=== PATIENT | male | born 1990 | race Caucasian/White ===

== ENCOUNTER 2021-10-26 00:13 | Emergency (ER) | payer OTHER, SELFPAY ==
--- NOTE | ~2021-10-26 | XR_ITS ---
EXAMINATION: XR CHEST CLINICAL INFORMATION: Chest COMPARISON: None TECHNIQUE: Frontal view of the chest was obtained. FINDINGS: No significant abnormality is noted involving the heart, lungs, mediastinum, bony thorax or soft tissues. XR/XR chest 1V IMPRESSION: Unremarkable examination.
--- NOTE | 2021-10-26 00:16 | ECG_ITS ---
Test Reason : CHEST PAIN Blood Pressure : / mmHG Vent. Rate : 070 BPM Atrial Rate : 070 BPM P-R Int : 150 ms QRS Dur : 102 ms QT Int : 400 ms P-R-T Axes : 058 042 035 degrees QTc Int : 432 ms Sinus rhythm with Premature supraventricular complexes Otherwise normal ECG No previous ECGs available Referred By: Luisa Fuentes Electronically Signed By:ROSEMARY RANDOLPH
[2021-10-26 00:21] VITALS: BMI 25.8
--- NOTE | 2021-10-26 00:34 | ED.GENADULT ---
HPI - General Adult General Chief complaint: General Medical Stated complaint: chest discomfort Time Seen by Provider: 10/26/21 00:16 Source: patient Mode of arrival: ambulatory History of Present Illness HPI narrative: 31-year-old male who is brought in by EMS after he was found by the police department sleeping underneath the vehicle. Patient states that he has been walking all day. He denies any alcohol use but endorses he did use some heroin and denies any suicidal or depression. Patient denies wanting detox when does not wish to speak to anyone. Otherwise, he states that he is hungry but denies any fever, chills, shortness of breath/chest pain/ palpitations. Related Data Allergies Allergy/AdvReac Type Severity Reaction Status Date / Time Unable to Assess Allergy Verified 10/26/21 00:16 Review of Systems Review of Systems: Pertinent positives and negatives as stated in HPI 10 point review of systems is otherwise negative. PMFSH Past Medical History Source: nursing notes reviewed Social History Social History Alcohol intake: current Patient Tobacco Use Status: Current everyday Tobacco user Use of substances other than those prescribed or required for medical reasons: Yes Physical Exam ED Vital Signs: Vital Signs - 24 hr 10/26/21 01:10 Respiratory Rate 17 BMI result Body Mass Index 25.8 VITAL SIGNS: Reviewed. GENERAL: Well developed, well nourished, in no acute distress. HEAD: Normocephalic/atraumatic EYES: PERRLA, EOMI EARS: Ext canals without abnormality OROPHARYNX: no oral lesions noted, posterior pharynx clear LUNGS: Normal breath sounds. No adventitious sounds or accessory muscle use. CARDIOVASCULAR: Regular rate and rhythm without noted murmurs ABDOMEN: Soft, non-tender, non-distended with bowel sounds. MUSCULOSKELETAL: No tenderness, deformities, or effusions noted on gross inspection. EXTREMITIES: No cyanosis, clubbing or edema. SKIN: Inspection of the skin reveals no rashes NEUROLOGIC: Alert and oriented x 4. Strength and sensation to light touch were grossly intact x 4. Course Course Course Narrative: 31-year-old male with history and clinical presentation consistent with opioid use. Patient does not demonstrate any signs or symptoms of suicidal ideation or depression, he is currently refusing ALIDA eval and is requesting to be discharged home. He was discharged with home Narcan. Patient is tolerating oral intake without difficulty and is noted to ambulate with a steady gait. Medical Decision Making ECG Data Attestation: I personally reviewed and interpreted this ECG as follows: Prior ECG tracings: not available for review Interpretation: sinus rhythm, HR - 70, no STEMI, OH/ QRS /QTC are within normal limits. Discharge Plan Discharge Clinical Impression: Substance use disorder Patient Disposition: Home, Self-Care Instructions: Polysubstance Abuse (ED) Additional Instructions: follow-up with your primary care provider. Return to the ER for worsening symptoms.
[2021-10-26 01:10] VITALS: RESP 17
--- NOTE | 2021-10-26 01:29 | PC.NURSE ---
Pt refuses labs, refuses vital signs. He states he feels as if someone in the ED is talking about him and is requesting to leave. MD Jim aware, spoke with pt regarding this.
--- NOTE | 2021-10-26 01:39 | PC.NURSE ---
Pt left prior to obtaining DC papers/take home Narcan - despite being encouraged to wait one additional minute for me to pull them from [facility]. Pt informed other staff members that he has narcan and can get more from [facility]. Pt ambulated out of the ED independently and with steady gait.
== END 2021-10-26 01:42 | disposition home or self-care (01) ==
LOC: HO.ED 01:37
PROVIDERS: Emergency Provider Student in an Organized Health Care Education/Training Program
DX: F19.10 Other psychoactive substance abuse, uncomplicated (principal); F17.200 Nicotine dependence, unspecified, uncomplicated
CPT/HCPCS: 71045; 93005; 99283; 99284

== ENCOUNTER 2021-10-31 02:36 | Emergency (ER) | payer OTHER, SELFPAY ==
--- NOTE | 2021-10-31 02:47 | ED_ITS ---
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 complaint: substance abuse Onset (ago): day(s) Duration: intermittent History of same: Yes Relieving factors: none Exacerbating factors: drug use Context: recent drug abuse Associated psychiatric symptoms: none Associated symptoms: denies other symptoms Treatments prior to arrival: none Related Data Allergies Allergy/AdvReac Type Severity Reaction Status Date / Time Unable to Assess Allergy Verified 10/26/21 00:16 Review of Systems Review of Systems: Constitutional : No Fever, No Chills Cardiovascular : No Chest Pain, No SOB Respiratory : No Cough, No Sputum, No Dyspnea Gastrointestinal : No Nausea, No Vomiting, No Diarrhea Genitourinary : No Dysuria, No Urinary Frequency, No Hematuria Musculoskeletal : No Myalgias Skin : No Skin Lesions, No rash Neuro : No Weakness, No Numbness, No Paresthesias, No Dizziness, No Headache Psych : no Anxiety, no Depression, nonSI/HI All other systems reviewed and are negative [facility] Past Medical History Attestation statement: The following information was validated with the patient. Medical History Polysubstance abuse Social History Social History (Updated 10/31/21 @ 02:54 by Dana Ryder DO) Alcohol intake: current Patient Tobacco Use Status: Current everyday Tobacco user Substance Use Type: Crack/Cocaine and Heroin Physical Exam Vital Signs: Appearance: Alert. Oriented X3. No acute distress. Initially agitated he was brought here. Why am I here, I don't need to be here! Calmed down and given food. Eyes: Pupils equal, round and reactive to light. ENT: Pharynx normal. Neck: Normal inspection. Neck supple. CVS: tachycardic heart rate and rhythm. Pulses normal. Respiratory: No respiratory distress. Breath sounds normal. Abdomen: Soft and nontender. Skin: Skin warm and dry. Normal skin color. Normal skin turgor. Extremities: No lower extremity edema. No calf ttp Neuro: Oriented X 3. No motor deficit. No sensory deficit. 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 He did not receive narcan, he has no SI/HI. He is calm and cooperative. He does not want a SUDE evaluation. Discharge Plan Discharge Clinical Impression: Polysubstance abuse Patient Disposition: Home, Self-Care Instructions: Polysubstance Abuse (ED) Additional Instructions: return to ED for any worsening symptoms or concerns carry narcan with you at at all times
[2021-10-31 02:52] VITALS: BP 139/86; BP 160/110; PULSE 101; PULSE 110; RESP 16; O2SAT 96; O2SAT 97; BMI 27.0
--- NOTE | 2021-10-31 02:59 | PC.NURSE ---
Took over care of pt. from EMS. Pt. says he doesn't need to be here. Denies SI/HI/AH/VH. No complaints of pain. Admits to using illicit drugs earlier in the evening. Pt. is alert and oriented X4. Steady ambulation is observed.
[2021-10-31] MEDS: Naloxone HCl Nasal TAKE HOME 4 MG SPRAY NOSTRILALT (03:02)
--- NOTE | 2021-10-31 03:03 | PC.NURSE ---
NARCAN scanned in per MAR, given to patient.
== END 2021-10-31 03:06 | disposition home or self-care (01) ==
LOC: HO.ED 03:02
PROVIDERS: Emergency Provider Emergency Medicine
DX: F11.29 Opioid dependence with unspecified opioid-induced disorder (principal); F14.10 Cocaine abuse, uncomplicated; F17.200 Nicotine dependence, unspecified, uncomplicated; Z71.6 Tobacco abuse counseling; Z79.899 Other long term (current) drug therapy
CPT/HCPCS: 99282

== ENCOUNTER 2021-10-31 19:21 | Emergency (ER) | payer OTHER, SELFPAY ==
[2021-10-31 19:31] VITALS: BP 133/88; BP 150/98; PULSE 107; PULSE 121; RESP 18; O2SAT 95; BMI 29.8
--- NOTE | 2021-10-31 19:37 | ED.GENADULT ---
HPI - General Adult General Chief complaint: Overdose Stated complaint: ?OD Time Seen by Provider: 10/31/21 19:36 Source: patient and EMS Mode of arrival: EMS Limitations: no limitations History of Present Illness HPI narrative: Patient is a 31 year old male presenting to the emergency department today after a possible overdose. Patient states that he fell asleep in an unusual place and he was woken up to EMS using narcan on him. Patient states that he attempted to refuse narcan but they insisted and did it anyway. Patient states that he would like to leave, now. Patient states that he does not want to talk to anyone and does not want narcan for home. Patient denies any dizziness, lightheadedness, abdominal pain, nausea, vomiting, fever, chills, blurry vision, double vision, loss of vision, chest pain, difficulty breathing, shortness of breath, back pain, night sweats, pain with urination, increased urinary frequency, increased urinary urgency, blood in his urine or stool, syncope or a near syncopal episode, recent trauma or falls, bowel incontinence, bladder incontinence, bowel retention, bladder retention, or any other complaints at this time. Onset (ago): minute(s) Severity: mild Relieving factors: none Exacerbating factors: none Associated symptoms: denies other symptoms Treatments prior to arrival: none Related Data Allergies Allergy/AdvReac Type Severity Reaction Status Date / Time Unable to Assess Allergy Verified 10/26/21 00:16 Review of Systems Constitutional: Constitutional: Reports no additional constitutional complaints, Denies chills, Denies fever(s) and Denies night sweats Eyes: Eyes: Reports no additional eye complaints, Denies blurry vision, Denies change in vision, Denies diplopia, Denies eye discharge, Denies loss of vision and Denies eye pain ENT: Denies dizziness Cardiovascular: Cardiovascular: Reports no additional cardiovascular complaints, Denies chest pain, Denies lightheadedness, Denies Loss of Consciousness and Denies dyspnea Respiratory: Respiratory: Reports no additional respiratory complaints and Denies dyspnea Gastrointestinal: Gastrointestinal: Reports no additional gastrointestinal complaints, Denies abdominal pain, Denies melena, Denies hematochezia, Denies change in bowel habits and Denies change in stool character Genitourinary: Genitourinary: Reports no additional male genitourinary complaints, Denies hematuria, Denies oliguria, Denies difficulty urinating, Denies dysuria, Denies urinary frequency, Denies urinary hesitancy, Denies urinary incontinence and Denies urinary urgency Musculoskeletal: Musculoskeletal: Reports no additional musculoskeletal complaints, Denies numbness and Denies tingling Neurologic: Denies dizziness, Denies loss of vision, Denies numbness and Denies tingling Psychiatric: Psychiatric: Reports no additional psychiatric complaints Endocrine: Endocrine: Reports no additional endocrine complaints Hematologic/Lymphatic: Hematologic/Lymphatic: Reports no additional hematologic/lymphatic complaints Allergic/Immunologic: Allergic/Immunologic: Reports no additional allergic/immunologic complaints [facility] Past Medical History Attestation statement: The following information was validated with the patient. Source: old records reviewed Medical History Polysubstance abuse Social History Social History Alcohol intake: current Patient Tobacco Use Status: Current everyday Tobacco user Substance Use Type: Crack/Cocaine and Heroin Advance Directives: No Advance Directives Information Provided: No Physical Exam ED Vital Signs: Vital Signs - 24 hr 10/31/21 19:31 Pulse Rate 107 H Respiratory Rate 18 Blood Pressure 133/88 Pulse Oximetry 95 Oxygen Delivery Method Room Air BMI result Body Mass Index 29.8 Const General: cooperative, no acute distress, alert and awake Nutritional Appearance: well nourished Orientation/consciousness: patient oriented x3 Limitations: no limitations [facility] Head: Yes normal to inspection and Yes atraumatic Ears: hearing grossly normal bilaterally and external ears normal General nose exam: Normal external nose present, no nasal discharge noted and no epistaxis Face and sinus: Yes normal facial exam, No abrasion and No laceration Mouth: Normal oral and palatal mucosa present, no drooling and no muffled voice Eyes General: appearance normal, both eyes and all related structures Periorbital: periorbital findings normal Eyelids: Yes eyelids normal Conjunctivae: conjunctivae normal Pupils: Equal, round and reactive pupils present EOM: EOMs intact bilaterally Neck Neck: Yes normal visual inspection, Yes full ROM and Yes no lymphadenopathy Chest Chest palpation & inspection: normal inspection of the chest Resp Effort & Inspection: normal respiratory effort and able to speak in complete sentences Auscultation: clear to auscultation bilaterally Cardio Rate: regular rate Rhythm: regular rhythm GI Inspection: Yes normal to inspection Neuro General: patient oriented x3 and moves all extremities Cranial nerves: Yes Equal, round and reactive pupils present Cognition (Neuro): normal cognition Motor exam (neuro): 5/5 motor strength present throughout Sensory Exam: Normal double simultaneous stimulation for sensation Coordination: [id number] test normal Extrem General: Yes normal to inspection, Yes full ROM and Yes capillary refill normal Psych Appearance: grossly normal Mental Status: mental status grossly normal Affect: normal affect Attitude: cooperative Thought process: Normal thought process present Thought content: Normal thought content present Insight: Good insight present (Psych) Medical Decision Making MDM Narrative Medical decision making narrative: Patient is a 31 year old male presenting to the emergency department today after a possible overdose. Patient's physical exam was unremarkable. Patient was alert, oriented, and steady on his feet. Patient was able to dress himself and tie his boots. Patient refused any additional work up, crisis counseling, or at home narcan. I explained my physical exam findings to the patient. I answered all questions asked by the patient. I stressed the importance of the patient taking his medication as prescribed. I stressed the importance of the patient following up with his primary care provider. I stressed the importance of the patient returning to the emergency department immediately if his symptoms were to worsen or if he were to develop any dizziness, shortness of breath, difficulty breathing, chest pain, blurry vision, loss of vision, nausea, vomiting, abdominal pain, fever, chills, back pain, or any other complaints. I stressed that drugs are dangerous and should not be used. Patient verbalized agreement and understanding with this treatment plan and discharge. Differential Diagnosis Differential Diagnosis: overdose Medical Records Medical records reviewed: Yes I reviewed the patient's medical records. Discharge Plan Discharge Clinical Impression: Drug overdose Patient Disposition: Home, Self-Care Instructions: Adult Overdose (ED) Additional Instructions: Follow up with your primary care provider. Return to the emergency department immediately if your symptoms worsen or if you develop any dizziness, shortness of breath, difficulty breathing, chest pain, blurry vision, loss of vision, nausea, vomiting, abdominal pain, fever, chills, back pain, or any other complaints. Referrals: [facility] [place] Family Medicine [Provider Group] (Call to establish and follow up with a primary care provider. If you already have a primary care provider, please call and follow up with them. ) [facility] [place] Primary [facility] [Provider Group] (Call to establish and follow up with a primary care provider. If you already have a primary care provider, please call and follow up with them. ) [facility] [place] Primary [facility] [Provider Group] (Call to establish and follow up with a primary care provider. If you already have a primary care provider, please call and follow up with them. ) Print Language: Turkmen
== END 2021-10-31 19:36 | disposition home or self-care (01) ==
PROVIDERS: Emergency Provider Internal Medicine
DX: T40.1X1A Poisoning by heroin, accidental (unintentional), initial encounter (principal); Y92.9 Unspecified place or not applicable; F17.210 Nicotine dependence, cigarettes, uncomplicated; Z71.6 Tobacco abuse counseling; F14.10 Cocaine abuse, uncomplicated; Z71.51 Drug abuse counseling and surveillance of drug abuser
CPT/HCPCS: 99282

== ENCOUNTER 2021-11-04 02:01 | Emergency (ER) | payer OTHER, SELFPAY ==
[2021-11-04 02:15] VITALS: BP 160/90; BP 162/90; PULSE 110; RESP 18; TEMP 36.7; O2SAT 98; BMI 28.4
--- NOTE | 2021-11-04 02:21 | ED_ITS ---
HPI - Overdose General Stated Complaint: HEROIN/FENTANYL USE PER EMS Time Seen by Provider: 11/04/21 02:15 History of Present Illness HPI Narrative: Patient is a 31-year-old male presents today after using cocaine and heroin. Patient awake alert does not want any further care ambulating. Walking around in the room. Does not want any interventions. Patient denies any suicidal homicidal ideations. Denies any focal weakness. Does not want help with detox. Does not want Narcan kit to take home. Related Data Allergies Allergy/AdvReac Type Severity Reaction Status Date / Time Unable to Assess Allergy Verified 10/26/21 00:16 Review of Systems Review of Systems: No fever no chills no chest pain or shortness of breath Yes all other systems are reviewed and are negative [facility] Past Medical History Attestation statement: The following information was validated with the patient. Medical History Polysubstance abuse Social History Social History Alcohol intake: current Patient Tobacco Use Status: Current everyday Tobacco user Substance Use Type: Crack/Cocaine and Heroin Advance Directives: No Advance Directives Information Provided: No Physical Exam Vital Signs: Vital Signs: Appearance: Alert. Oriented X3. No acute distress. Eyes: Pupils equal, round and reactive to light. ENT: Pharynx normal. Neck: Normal inspection. Neck supple. No lymph nodes noted. No crepitus CVS: Normal heart rate and rhythm. Pulses normal. Normal S1 and S2 Respiratory: No respiratory distress. Breath sounds normal. No Wheezing. No rales Abdomen: Soft and nontender. No rigidity. No distention. good BS x4 Skin: Skin warm and dry. Normal skin color. Normal skin turgor. Extremities: No lower extremity edema. Neurovascular intact to all extremities. No Lacerations. No Rash Neuro: Oriented X 3. No motor deficit. No sensory deficit. Moving all extermities. No slurred speech MDM - Overdose MDM Narrative Medical decision making narrative: Patient did not want a stay in the emergency department for any additional care. Does not want Narcan kit to take home. Does not want detox. Patient is awake alert answering questions appropriately. Ambulating well. He walked out of the emergency department. Medical Records Attestation: I reviewed the patient's medical records. Lab Data Attestation: I reviewed the patient's lab results. Discharge Plan Discharge Clinical Impression: Heroin abuse, Cocaine abuse Patient Disposition: Home, Self-Care Additional Instructions: Please go to detox. Please stop using recreational drugs. Using cocaine or heroin can kill you. Referrals: [facility] [Provider Group]
== END 2021-11-04 03:11 | disposition home or self-care (01) ==
PROVIDERS: Emergency Provider Emergency Medicine Emergency Medical Services
DX: F14.10 Cocaine abuse, uncomplicated (principal); F11.10 Opioid abuse, uncomplicated; F17.200 Nicotine dependence, unspecified, uncomplicated
CPT/HCPCS: 99282

== ENCOUNTER 2021-11-04 20:10 | Emergency (ER) | payer OTHER, SELFPAY ==
[2021-11-04 20:51] VITALS: BP 128/75; PULSE 73; RESP 12; TEMP 36.3; O2SAT 90; BMI 24.3
--- NOTE | 2021-11-04 22:31 | ED_ITS ---
HPI - General Adult General Chief complaint: ETOH/Substance Use Stated complaint: vommiting, sweating, drug issue, abdominal pain Time Seen by Provider: 11/04/21 22:05 History of Present Illness HPI narrative: Patient is a 31-year-old male with a history of polysubstance abuse. Patient use heroin on a regular basis. Use heroin 2 hours prior to arrival. Patient is hungry has no complaints. Question wants detox. He is not suicidal not homicidal. There Related Data Allergies Allergy/AdvReac Type Severity Reaction Status Date / Time No Known Allergies Allergy Verified 11/04/21 20:56 Review of Systems Review of Systems: No fever no chills no chest pain or shortness of breath no nausea no vomiting. Patient refused to answer any more questions Yes all other systems are reviewed and are negative [facility] Past Medical History Attestation statement: The following information was validated with the patient. Medical History Polysubstance abuse Social History Social History Alcohol intake: current Patient Tobacco Use Status: Current everyday Tobacco user Substance Use Type: Crack/Cocaine and Heroin Advance Directives: No Advance Directives Information Provided: No Physical Exam ED Vital Signs: Vital Signs - 24 hr 11/04/21 20:51 Temperature 97.3 F Pulse Rate 73 Respiratory Rate 12 Blood Pressure 128/75 Pulse Oximetry 90 L Oxygen Delivery Method Room Air BMI result Body Mass Index 24.3 Appearance: Alert. Oriented X3. No acute distress. Eyes: Pupils equal, round and reactive to light. ENT: Pharynx normal. Neck: Normal inspection. Neck supple. No lymph nodes noted. No crepitus CVS: Normal heart rate and rhythm. Pulses normal. Normal S1 and S2 Respiratory: No respiratory distress. Breath sounds normal. No Wheezing. No rales Abdomen: Soft and nontender. No rigidity. No distention. good BS x4 Skin: Skin warm and dry. Normal skin color. Normal skin turgor. Extremities: No lower extremity edema. Neurovascular intact to all extremities. No Lacerations. No Rash Neuro: Oriented X 3. No motor deficit. No sensory deficit. Moving all extermities. No slurred speech Medical Decision Making MDM Narrative Medical decision making narrative: Patient admits to using heroin he is currently sleeping. Breathing normally. Will offer detox. Patient will be discharged home when clinically sober. Currently in stable condition. Discharge Plan Discharge Clinical Impression: Cocaine abuse, Heroin abuse Patient Disposition: Home, Self-Care Instructions: Opioid Use Disorder (ED), Polysubstance Abuse (ED) Referrals: Physician,Unknown J [Primary Care Provider] - (Please go to detox. A listed phone number was provided to you. Using heroin can kill you.)
--- NOTE | 2021-11-04 22:37 | PC.NURSE ---
ATTEMPTED TO DO PT VITALS AND PT REFUSED, RIPPING OFF BP CUFF AND GETTING VERBALLY UPSET. RN AND MD AWARE.
[2021-11-04 22:39] VITALS: RESP 16
--- NOTE | 2021-11-04 23:12 | PC.NURSE ---
Pt refusing vital signs
--- NOTE | 2021-11-04 23:13 | PC.NURSE ---
pt sleeping on stretcher. no respiratory distress. equal chest rise and fall.
--- NOTE | 2021-11-05 04:38 | PC.NURSE ---
pt sleeping comfortably on stretcher. no respiratory distress. respirations even and unlabored. willl continue to monitor closely.
[2021-11-05 05:50] VITALS: BP 127/76; PULSE 59; RESP 18; O2SAT 96
== END 2021-11-05 06:02 | disposition home or self-care (01) ==
PROVIDERS: Emergency Provider Emergency Medicine Emergency Medical Services
DX: F14.10 Cocaine abuse, uncomplicated (principal); F11.10 Opioid abuse, uncomplicated; F17.200 Nicotine dependence, unspecified, uncomplicated
CPT/HCPCS: 99282; 99284

== ENCOUNTER 2021-11-18 20:52 | Emergency (ER) | payer OTHER, SELFPAY ==
--- NOTE | ~2021-11-18 | XR_ITS ---
EXAMINATION: XR ELBOW, LEFT CLINICAL INFORMATION: Needle in the antecubital area. COMPARISON: None TECHNIQUE: AP, lateral, and oblique views of the left elbow. FINDINGS: No fracture or dislocation. Alignment is anatomic. Joint spaces are maintained. No elbow joint effusion. No radiopaque foreign body. XR/XR elbow LT 2V IMPRESSION: Normal left elbow. No radiopaque foreign body.
[2021-11-18 21:03] VITALS: BP 151/86; PULSE 101; RESP 20; TEMP 36.9; O2SAT 96; BMI 26.5
--- NOTE | 2021-11-18 21:21 | ED.GENADULT ---
HPI - General Adult General Chief complaint: Altered Mental Status Stated complaint: NEEDLE STUCK IN THE ARM Time Seen by Provider: 11/18/21 21:08 Source: patient Mode of arrival: ambulatory Limitations: no limitations History of Present Illness HPI narrative: Patient using multiple substances crystal meth heroin cocaine says that he broke the needle in the left antecubital area earlier today no fever no chills patient seems to be intoxicated walking around Related Data Previous Rx's Medication Instructions Recorded sulfamethoxazole 800 1 tab PO BID #20 tabs 11/18/21 mg-trimethoprim 160 mg tablet (Bactrim DS) Allergies Allergy/AdvReac Type Severity Reaction Status Date / Time No Known Allergies Allergy Verified 11/04/21 20:56 PMFSH Past Medical History Medical History Polysubstance abuse Social History Social History Alcohol intake: current Patient Tobacco Use Status: Current everyday Tobacco user Substance Use Type: Crack/Cocaine and Heroin Advance Directives: No Advance Directives Information Provided: No Physical Exam ED Vital Signs: Vital Signs - 24 hr 11/18/21 21:03 Temperature 98.5 F Pulse Rate 101 H Respiratory Rate 20 Blood Pressure 151/86 H Pulse Oximetry 96 Oxygen Delivery Method Room Air BMI result Body Mass Index 26.5 Appearance: Alert. Oriented X3. No acute distress. Intoxicated Eyes: PERRLA, ENT: Pharynx normal. Oral Mucosa moist Neck: Normal inspection. Neck supple. CVS: Normal heart rate and rhythm. Pulses normal. Respiratory: No respiratory distress. Equal air entry bilateral, Abdomen: Soft and nontender. Bowel sounds are present, no mass palpable, no CVA tenderness Skin: Skin warm and dry. Normal skin color. Normal skin turgor. Extremities: No lower extremity edema. No calf tendernessm in left antecubital area signs of IVDA Neuro: Oriented X 3. No motor deficit. Medical Decision Making MDM Narrative Medical decision making narrative: No needle was seen in the x-ray will discharge patient home advised to stop using drugs Discharge Plan Discharge Clinical Impression: Polysubstance abuse Patient Disposition: Home, Self-Care Instructions: Polysubstance Abuse (ED) Additional Instructions: Stop using drugs and follow up with detox Take antibiotic as advised for local infection at the site of IVDA Prescriptions: New sulfamethoxazole-trimethoprim [Bactrim DS] 800-160 mg tablet 1 tab PO BID Qty: 20 0RF Interventions: ED Discharge Assessment Last Done: 11/18/21 22:12 Discharge Date/Time: 11/18/21 22:13
== END 2021-11-18 22:13 | disposition home or self-care (01) ==
PROVIDERS: Emergency Provider Internal Medicine
DX: F19.10 Other psychoactive substance abuse, uncomplicated (principal); Z03.823 Encounter for observation for suspected inserted (injected) foreign body ruled out; F17.200 Nicotine dependence, unspecified, uncomplicated
CPT/HCPCS: 73070; 99282; 99283

== ENCOUNTER 2022-12-07 17:12 | Emergency (ER) | payer MEDICAID, SELFPAY ==
[2022-12-07 17:22] VITALS: BP 137/81; BP 160/102; PULSE 106; PULSE 117; RESP 20; O2SAT 92; O2SAT 96; BMI 31.0
--- NOTE | 2022-12-07 18:20 | ED.GENADULT ---
HPI - General Adult General Chief complaint: General Medical Stated complaint: genital pain and blisters, using heroine, per ems Time Seen by Provider: 12/07/22 18:20 Source: patient Mode of arrival: EMS Limitations: no limitations History of Present Illness HPI narrative: With history of substance abuse use cocaine crack and heroin just released from the [facility] 1 week ago homeless comes here with multiple skin lesions and chronic groin rash no fever no chills patient seems to be under influence of drugs in the ER falling sleep often Related Data Previous Rx's Medication Instructions Recorded sulfamethoxazole 800 1 tab PO BID #20 tabs 11/18/21 mg-trimethoprim 160 mg tablet (Bactrim DS) cephalexin 500 mg capsule 500 mg PO QID 10 days #40 caps 12/07/22 doxycycline hyclate 100 mg tablet 100 mg PO BID #20 tabs 12/07/22 miconazole nitrate 2 % topical 1 spray topical BID #133 grams 12/07/22 spray powder (Lotrimin AF Jock Itch Powder) Allergies Allergy/AdvReac Type Severity Reaction Status Date / Time No Known Allergies Allergy Verified 11/04/21 20:56 Review of Systems Review of Systems: Yes all other systems are reviewed and are negative PMFSH Past Medical History Medical History Polysubstance abuse Social History Social History Alcohol intake: current Alcohol intake frequency: 3 or more drinks per day Patient Tobacco Use Status: Current everyday Tobacco user Use of substances other than those prescribed or required for medical reasons: Yes Substance Use Type: Crack/Cocaine, Heroin and Marijuana Physical Exam ED Vital Signs: Vital Signs - 24 hr 12/07/22 17:22 Pulse Rate 106 H Respiratory Rate 20 Blood Pressure 137/81 Pulse Oximetry 92 Oxygen Delivery Method Room Air BMI result Body Mass Index 31.0 Appearance: Alert. Oriented X3. No acute distress. Intoxicated Eyes: PERRLA, No Nystagmus ENT: Pharynx normal. Oral Mucosa moist atraumatic normocephalic Neck: Normal inspection. Neck supple. CVS: Normal heart rate and rhythm. Pulses normal. Respiratory: No respiratory distress. Equal air entry bilateral, no wheezing/rales/rhonchi Abdomen: Soft and nontender. Bowel sounds are present, no mass palpable, no CVA tenderness Skin: Skin warm and dry. Multiple skin lesions?mrsa has intertrigo in groin area Extremities: No lower extremity edema. No calf tenderness Neuro: Oriented X 3. No motor deficit. No sensory deficit.No cerebellar signs , cranial nerves II-XII intact Discharge Plan Discharge Clinical Impression: MRSA infection, Candidal intertrigo Patient Disposition: Home, Self-Care Instructions: MRSA (Methicillin-Resistant Staphylococcus Aureus) (ED), Skin Yeast Infection (ED) Additional Instructions: Keep skin area clean Antibiotic and anti fungal spray as prescribed Prescriptions: New miconazole nitrate [Lotrimin AF Jock Itch Powder] 2 % aerosol powder 1 spray topical BID Qty: 133 0RF cephalexin 500 mg capsule 500 mg PO QID 10 Days Qty: 40 0RF doxycycline hyclate 100 mg tablet 100 mg PO BID Qty: 20 0RF No Action sulfamethoxazole-trimethoprim [Bactrim DS] 800-160 mg tablet 1 tab PO BID Qty: 20 0RF
--- NOTE | 2022-12-07 18:42 | PC.NURSE ---
pt arrived via ems found [facility] bathroom c/o sores to genital area/face/mouth. pt reports use of crack/cocaine/heroin + 1 bottle alc/day. pt denies si/hi. pt cooperative and responding appropriately; axox3. awaiting primary eval by ed provider.
[2022-12-07] MEDS: Doxycycline Monohydrate 100 MG CAPSULE PO (20:20)
[2022-12-07] MEDS: cephALEXin 500 MG CAPSULE PO (20:20)
--- NOTE | 2022-12-07 20:20 | PC.NURSE ---
This RN assumed care at 1900. Patient appears to still be under the influence of substances, difficult to get patient to take medication, patient finally obliged.
[2022-12-07] MEDS: LORazepam 1 MG TABLET 2 MG PO (21:10)
[2022-12-07] MEDS: Fluconazole 150 MG TABLET PO (21:10)
--- NOTE | 2022-12-07 21:10 | PC.NURSE ---
Patient took Fluconazole and Ativan at this time. Patient speaking Korean, not making sense, patient appears to still be under the influence of substances. Patient able to walk with this RN to the bathroom and provided urine sample at this time
[2022-12-07 22:26] LABS: Amphetamine Screen Urine Not Detected (Not Detect); Barbiturates, Urine Not Detected (Not Detect); Benzodiazepines Screen Urine Not Detected (Not Detect); Cannabinoid Screen Urine POSITIVE (Not Detect); Cocaine Screen Urine POSITIVE (Not Detect); Fentanyl, urine POSITIVE (Not Detect); Opiate Screen Urine Not Detected (Not Detect); Phencyclidine Screen Urine POSITIVE (Not Detect)
--- NOTE | 2022-12-07 22:32 | PC.NURSE ---
Patient agitated but able to be redirected, sleeping at this time, will continue to monitor per MD orders
[2022-12-08 02:00] VITALS: BP 137/78; PULSE 99; RESP 20; TEMP 37.5; O2SAT 92
== END 2022-12-08 07:39 | disposition home or self-care (01) ==
PROVIDERS: Emergency Provider Internal Medicine
DX: B37.2 Candidiasis of skin and nail (principal); A49.02 Methicillin resistant Staphylococcus aureus infection, unspecified site; F19.10 Other psychoactive substance abuse, uncomplicated; F17.200 Nicotine dependence, unspecified, uncomplicated; Z79.899 Other long term (current) drug therapy
CPT/HCPCS: 80307; 99284; 99285

== ENCOUNTER 2025-02-19 05:29 | Emergency (ER) | payer SELFPAY ==
--- NOTE | 2025-02-19 | ECG_ITS ---
Test Reason : OD Blood Pressure : */* mmHG Vent. Rate : 108 BPM Atrial Rate : 108 BPM P-R Int : 154 ms QRS Dur : 100 ms QT Int : 334 ms P-R-T Axes : 44 25 27 degrees QTcB Int : 447 ms Sinus tachycardia Otherwise normal ECG When compared with ECG of 26-Oct-2021 00:41, Premature supraventricular complexes are no longer Present Vent. rate has increased by 38 bpm Referred By: Generic ED Physician Electronically Signed By: ROSEMARY RANDOLPH
--- NOTE | ~2025-02-19 | XR_ITS ---
CLINICAL HISTORY: od 1 view chest x-ray Comparison: None provided Findings: Lungs are underexpanded with bronchovascular crowding. Normal size heart. No acute fracture. IMPRESSION: Underexpanded lungs with bronchovascular crowding. Limited study. This document has been electronically signed by: Hunter Kaur MD on 02/19/2025 06:25:17
[2025-02-19 05:34] VITALS: BP 141/86; BP 158/94; PULSE 105; PULSE 111; RESP 25; O2SAT 95; BMI 27.3
[2025-02-19 05:40] VITALS: BP 141/86; PULSE 105; RESP 25; TEMP 36.6; O2SAT 95
--- NOTE | 2025-02-19 05:53 | PC.NURSE ---
pt ambulated to bathroom with stead gate.
[2025-02-19 05:55] LABS: Appearance Urine Clear; Glucose Urine UA Negative (Negative); PH 6.5 (5.0-9.0); Specific Gravity - Urine 1.010 (1.005-1.025); UMIC TRIGGER UACC YES
[2025-02-19 06:07] LABS: Cannabinoid Screen Urine POSITIVE (Not Detect)
--- NOTE | 2025-02-19 06:11 | ED_ITS ---
HPI - Overdose General Chief Complaint: Overdose Stated Complaint: OD Time Seen by Provider: 02/19/25 05:45 Source: patient, EMS and old records reviewed Mode of arrival: EMS Limitations: altered mental status History of Present Illness HPI Narrative: 35-year-old male who presents after an apparent accidental opioid (likely fentanyl) overdose. Per history, a bystander administered 12 mg intranasal naloxone, followed by two 4 mg intranasal doses given by police prior to EMS arrival (total 16 mg IN). On EMS arrival the patient was alert, conscious, and breathing. In the ED he reports persistent nausea but denies vomiting. He states the overdose was unintentional and denies suicidal intent. He estimates using approximately one bag of fentanyl tonight and confirms alcohol use today. He denies using large amounts regularly. He has a past history of methadone/Suboxone treatment but is not currently on either. He denies any chronic medical conditions, takes no daily medications, and has no known drug allergies. He denies being ill prior to the event. Related Data Previous Rx's ?Medication ?Instructions ?Recorded sulfamethoxazole 800 1 tab PO BID #20 tabs mg-trimethoprim 160 mg tablet (Bactrim DS) cephalexin 500 mg capsule 500 mg PO QID 10 days #40 ca ps 12/07/22 doxycycline hyclate 100 mg tablet 100 mg PO BID #20 ta bs 12/07/22 miconazole nitrate 2 % topical 1 spray topical BID #13 3 grams 12/07/22 spray powder (Lotrimin AF Jock Itch Powder) doxycycline monohydrate 100 mg 100 mg PO BID #14 caps 02/19/25 capsule Allergies Allergy/AdvReac Type Severity Reaction Status Date / Time No Known Allergies Allergy Verified 02/19/25 05:37 Review of Systems Review of Systems: as per HPI, full review of systems performed and negative but for the above mentioned pertinent positives and negatives. [facility] Past Medical History Medical History Polysubstance abuse Social History Social History Alcohol intake: current Alcohol intake frequency: 3 or more drinks per day Patient Tobacco Use Status: Current everyday Tobacco user Use of substances other than those prescribed or required for medical reasons: Yes Substance Use Type: Crack/Cocaine and Heroin Advance Directives: No Advance Directives Information Provided: Yes Physical Exam Exam: Exam: GENERAL: Appears intoxicated, GCS 13, eyes open to voice, slurred speech, unkempt. SKIN: Normal skin color for ethnicity, warm, dry, no rashes noted. HEENT: Normocephalic, atraumatic, no stridor, posterior oropharynx nonerythematous, dentition intact, EOMI, pupils are pinpoint bilaterally, reactive to light. NECK: Soft, supple, no step-offs, no deformities, no lymphadenopathy. CHEST: Heart regular tachycardia, no murmurs, symmetric chest rise and fall. PULMONARY: Clear to auscultation bilaterally, diminished at the bases, no labored breathing, no wheezes/rhales/rhonchi. ABDOMINAL: Soft, nondistended, hyperactive bowel sounds in all quadrants. : Deferred. MUSCULOSKELETAL: Normal tone, full range of motion, no deformities, no peripheral edema. NEURO: GCS 13, eyes open to voice, slightly slurred speech, CN II through XII intact, equal strength and sensation bilateral upper and lower extremities, no focal neurologic deficits. PSYCHIATRIC: Flat affect, poor eye contact. Vital Signs: Vital Signs: Last Vital Signs Temp 98 F 02/19/25 05:40 Pulse 105 H 02/19/25 05:40 Resp 25 H 02/19/25 05:40 BP 141/86 H 02/19/25 05:40 Pulse Ox 95 02/19/25 05:40 O2 Del Method Room Air 02/19/25 05:40 BMI result Body Mass Index 27.3 Course Reevaluation(s) Reevaluation #1: I assumed care for this patient early in the beginning of my shift, patient is complaining of right buttock cheek redness and possible abscess, small area of fluctuation surrounded by area of erythema and redness. Please refer to procedure note will start the patient on doxycycline. Time: 11:52 Medications Administered Discontinued Medications Generic Name Dose Route Start Last Admin Trade Name Freq PRN Reason Stop Dose Admin Lidocaine HCl 10 ml 02/19/25 11:08 02/19/25 11:21 Lidocaine Hcl 1 % Mpf 5 Ml Vial SUBCUT 02/19/25 11:09 10 ml ONCE ONE Administration Naloxone HCl 8 mg 02/19/25 06:19 02/19/25 11:21 Naloxone Hcl Nasal Take Home 4 Mg [place] NOSTRILALT 02/19/25 06:20 8 mg ONCE ONE Administration Procedures Abscess I/D Site: lower extremity (Right buttock cheek) Side (if applicable): right Local Anesthetic: lidocaine 1% Amount of anesthesia used (mL): 7 Technique: incised with blade Amount of fluid expressed (mL): 2 Sent for culture/gram staining?: No Irrigation: No Packing used?: none Medical Decision Making Medical Decision Making [facility] Narrative: Patient presents with a chief complaint of possible overdose. Differential diagnosis includes life-threatening toxidrome such as anticholiner gic syndrome, serotonin syndrome, sympathomimetic, opioid induced, among others. Also includes co-ingestions, acidosis, intracranial process such as mass, hemorrhage, or CVA. Patient received a proximally 16 mg of intranasal Narcan prior to arrival. He has no real outward signs of withdrawal aside from an occasional yawn and slight tachycardia. Oxygen levels are normal on room air. He is resting comfortably. Plan for period of observation of approximately 4 hours to watch for naloxone reversible in the setting of fentanyl overdose to rule out recurrent respiratory depression. Holding off on blood work for now given patient's freely admission of fentanyl use today which is consistent with his clinical picture. Patient evaluated to determine if there is adequate GCS to maintain their airway as well as for hemodynamic stability. Placed on residential monitor for blood pressure, heart rhythm and oxygen levels. Frequent reevaluations to ensure no worsening neurologic or hemodynamic instability. Signing out to oncoming provider pending further drug metabolism, period of observation and final disposition. Differential Diagnosis Differential Diagnoses: The differential diagnosis associated with the presentation includes (As above) Admission/Observation Consideration of admission/observation: Escalation of care including admission/observation considered Lab Data [facility] Lab Attestation statement: I reviewed the patient's lab results. UDS positive for fentanyl, cocaine and marijuana. No evidence of UTI. Labs: Lab Results 02/19/25 Range/Units 05:49 Urine Color Yellow Urine Appearance Clear Urine pH 6.5 (5.0-9.0) Ur Specific [place] 1.010 (1.005-1.025) Urine Protein 100 (2+) H (Neg-Trace) mg/dL Urine Glucose (UA) Negative (Negative) mg/dL Urine Ketones Trace (Negative) mg/dL Urine Blood Small (1+) H (Negative) Urine Nitrite Negative (Negative) Ur Leukocyte Esterase Negative (Negative) Urine RBC 0-2 (0-2) /HPF Urine WBC 0-5 (0-5) /HPF Ur Squamous Epith Cells 0-2 (0-2) /HPF Urine Bacteria None Seen (None Seen) Hyaline Casts 0-2 (0-2) /LPF Urine Opiates Screen Not Detected (Not Detect) Ur Buprenorphine Scrn Not Detected (Not Detect) ng/mL Ur Oxycodone Screen Not Detected (Not Detect) ng/mL Urine Methadone Screen Not Detected (Not Detect) ng/mL Urine Fentanyl Screen POSITIVE H (Not Detect) Ur Barbiturates Screen Not Detected (Not Detect) Ur Phencyclidine Scrn Not Detected (Not Detect) Ur Amphetamines Screen Not Detected (Not Detect) U Benzodiazepines Scrn Not Detected (Not Detect) Urine Cocaine Screen POSITIVE H (Not Detect) U Marijuana (THC) Screen POSITIVE H (Not Detect) Independent Interpretation I performed an independent interpretation of an: EKG Interpretation: My independent interpretation of the ECG reveals normal sinus tachycardia with rate of 108, normal axis, normal intervals, no ST elevations or depressions to suggest ischemic changes, no previous for comparison. Radiology Impression Discussion of test interpretation with radiology: I have reviewed the radiologist's reading. Independent Historian Clinical information obtained from an independent historian. History obtained from or confirmed by: EMS External Record Review External record reviewed: Inpatient record Prescription Management I considered prescription management with: Other (Narcan) Chronic Conditions Patient?s care impacted by: Other (Substance use disorder) Social Determinants Patient?s care significantly limited by Social Determinants of Health including: Other Social Determinant of Health Discharge Plan Discharge Clinical Impression: Accidental fentanyl overdose, Cellulitis of buttock, right Patient Disposition: Home, Self-Care Instructions: Cellulitis (ED) Additional Instructions: Overdose You were seen in our Emergency Department for an overdose today. You received narcan in order to reverse the effects of overdose. Narcan only lasts about 45 min to 1 hour in the system. You may have been given narcan to take home with you today, please keep it near you if you are going to use again, so others can use it if needed.? The number one risk for fatal overdose is using alone? Safe [employer] is a 24/ hotline where you can be on the phone with someone while you use, and they can call for help if they suspect an overdose: [phone] Things to look out for when you leave include severe vomiting or diarrhea, headaches, muscle cramps, fever, coughing, chest pain, or if you feel so short of breath you cannot walk to the bathroom. Please seek care and return any time for worsening symptoms.? You may have been provided with safer injection?items, please take time to take care of YOU and your health. Use new supplies whenever possible to lessen the chances of infections and other illnesses.? If you need more supplies, please go [facility],? [address] [place] [address] OR you can call or text to coordinate delivery of safer supplies. If you decide you want to stop or cut down on how much you?re using, please call the numbers on the list provided to you or you can come to our outpatient Addiction Treatment office [facility] (M-F 9am-5p) [address] [place] [address], [address] [place], [place]. [phone] Prescriptions: New doxycycline monohydrate 100 mg capsule 100 mg PO BID Qty: 14 0RF No Action sulfamethoxazole-trimethoprim [Bactrim DS] 800-160 mg tablet 1 tab PO BID Qty: 20 0RF miconazole nitrate [Lotrimin AF Jock Itch Powder] 2 % aerosol powder 1 spray topical BID Qty: 133 0RF cephalexin 500 mg capsule 500 mg PO QID 10 Days Qty: 40 0RF doxycycline hyclate 100 mg tablet 100 mg PO BID Qty: 20 0RF Print Language: Bulgarian
--- NOTE | 2025-02-19 07:54 | PC.NURSE ---
pt sleeping, woke to verbal stimulus, ambulated to bathroom with tech, cardiac cath lab technologist nsr/st, vitals stable, rr equal/non labored, care team eval, call [facility] within reach, plan of care ongoing
--- NOTE | 2025-02-19 09:55 | PC.NURSE ---
recovery nurse in to speak with patient
--- NOTE | 2025-02-19 09:55 | PC.NURSE ---
patient c/o rt buttocks pain, upon looking- patient has a raised red area- provider was notified
[2025-02-19 11:00] VITALS: BP 141/82; PULSE 96; RESP 20; TEMP 36.2; O2SAT 96
[2025-02-19] MEDS: Lidocaine HCl 1 % MPF 5 ML VIAL 10 ML SUBCUT (11:21)
[2025-02-19] MEDS: Naloxone HCl Nasal TAKE HOME 4 MG SPRAY 8 MG NOSTRILALT (11:21)
[2025-02-19 12:20] VITALS: BP 141/82; PULSE 96; RESP 20; TEMP 36.2; O2SAT 96
--- NOTE | 2025-02-19 12:20 | PC.NURSE ---
abscess lanced by provider, ilana worker here to picker feeder the patient. pt to discharge with worker
== END 2025-02-19 12:21 | disposition home or self-care (01) ==
PROVIDERS: Emergency Provider Emergency Medicine
DX: T40.411A Poisoning by fentanyl or fentanyl analogs, accidental (unintentional), initial encounter (principal); Y92.9 Unspecified place or not applicable; L03.317 Cellulitis of buttock; R00.0 Tachycardia, unspecified; F17.200 Nicotine dependence, unspecified, uncomplicated; Z71.6 Tobacco abuse counseling
CPT/HCPCS: 10060; 71045; 80307; 81001; 93005; 99285; J2003; S9485

== ENCOUNTER → 2025-02-19 05:35 | Outpatient (BNV) | payer MEDICAID, SELFPAY | PROVIDERS: Emergency Provider Emergency Medicine; Visit Provider Internal Medicine | DX: R00.0 Tachycardia, unspecified (principal) | CPT/HCPCS: 93010 ==

== ENCOUNTER → 2025-02-19 06:14 | Outpatient (BNV) | payer MEDICAID, SELFPAY | PROVIDERS: Emergency Provider Emergency Medicine; Visit Provider Radiology Vascular & Interventional Radiology | DX: T50.901A Poisoning by unspecified drugs, medicaments and biological substances, accidental (unintentional), initial encounter (principal) | CPT/HCPCS: 71045 ==

== ENCOUNTER 2025-02-28 17:49 | Emergency (ER) | payer SELFPAY ==
[2025-02-28 18:00] VITALS: BP 132/68; BP 136/92; PULSE 129; PULSE 99; RESP 16; TEMP 36.8; O2SAT 95; BMI 29.4
--- NOTE | 2025-02-28 18:43 | ED.GENADULT ---
HPI - General Adult General Chief complaint: Overdose Stated complaint: OVERDOSE Time Seen by Provider: 02/28/25 17:56 Source: patient, RN notes reviewed and old records reviewed Mode of arrival: EMS Limitations: no limitations History of Present Illness ED Provider: Jim OJEDA narrative: 35-year-old male presents for evaluation of ?an overdose. ? The patient reports that he got out of shelter a day and a half ago. He reports that he used heroin in a [facility]. He reports that he was ?nodding off and overdosing. ? He reports that he did not like the way he fell and self administered Narcan He offers no complaints He does not wish to be evaluated for recovery or detox Related Data Previous Rx's ?Medication ?Instructions ?Recorded sulfamethoxazole 800 1 tab PO BID #20 tabs 11/18/21 mg-trimethoprim 160 mg tablet (Bactrim DS) cephalexin 500 mg capsule 500 mg PO QID 10 days #40 caps 12/07/22 doxycycline hyclate 100 mg tablet 100 mg PO BID #20 tabs 12/07/22 miconazole nitrate 2 % topical 1 spray topical BID #133 grams 12/07/22 spray powder (Lotrimin AF Jock Itch Powder) doxycycline monohydrate 100 mg 100 mg PO BID #14 caps 02/19/25 capsule Allergies Allergy/AdvReac Type Severity Reaction Status Date / Time No Known Allergies Allergy Verified 02/28/25 18:03 Review of Systems Constitutional: Constitutional: Denies body ache(s), Denies chills, Denies fever(s) and Denies headache(s) Eyes: Eyes: Denies blurry vision ENT: Denies vertigo, Denies dizziness and Denies headache(s) Cardiovascular: Cardiovascular: Denies chest pain and Denies dyspnea on exertion Respiratory: Respiratory: Denies cough and Denies dyspnea on exertion Gastrointestinal: Gastrointestinal: Denies abdominal pain, Denies nausea and Denies vomiting Musculoskeletal: Musculoskeletal: Denies back pain Integumentary/Breasts: Skin/Breast: Denies rash Neurologic: Denies vertigo, Denies dizziness and Denies headache(s) Psychiatric: Psychiatric: Denies anxiety, Denies depression and Denies suicidal ideation PMF Past Medical History Medical History Polysubstance abuse Social History Social History Alcohol intake: current Alcohol intake frequency: 3 or more drinks per day Patient Tobacco Use Status: Current everyday Tobacco user Smoked in Last 30 Days: Yes Use of substances other than those prescribed or required for medical reasons: Yes Substance Use Type: Crack/Cocaine and Opiates Substance Use Frequency: Occasionally Last Used Substance: Hours (ago) Any prior treatment program specific to substance use: No Do you have a plan to hurt others: No Plan Physical Exam ED Vital Signs: Vital Signs - 24 hr 02/28/25 18:00 02/28/25 18:47 Temperature 98.2 F 98.2 F Pulse Rate 99 99 Respiratory Rate 16 16 Blood Pressure 132/68 132/68 Pulse Oximetry 95 95 Oxygen Delivery Method Room Air Room Air BMI result Body Mass Index 29.4 Const General: healthy appearing, comfortable, no acute distress, alert and awake Nutritional Appearance: well nourished Orientation/consciousness: patient oriented x3 HENMT Head: Yes normocephalic and Yes atraumatic Eyes Eyelids: Yes eyelids normal Conjunctivae: conjunctivae normal Sclerae: sclerae normal Corneas: corneas normal Pupils: Equal, round and reactive pupils present EOM: EOMs intact bilaterally Neck Neck: Yes full ROM Resp Effort & Inspection: normal respiratory effort, able to speak in complete sentences and not labored GI Inspection: No distended Palpation (GI): Soft to palpation, not firm, nontender, no guarding and not rigid Skin General skin exam: elasticity normal Neuro General: patient oriented x3 Cranial nerves: Yes Equal, round and reactive pupils present and Yes Bilaterally intact EOM present Cognition (Neuro): normal cognition Extrem Other: Moving all extremities well without any obvious deformities Medications Administered Discontinued Medications Generic Name Dose Route Start Last Admin Trade Name Freq PRN Reason Stop Dose Admin Naloxone HCl 4 mg 02/28/25 18:44 02/28/25 18:47 Naloxone Hcl Nasal 4 Mg Unity NOSTRILALT 02/28/25 18:45 4 mg ONCE ONE Administration Medical Decision Making Medical Decision Making [facility] Narrative: 35-year-old male presents for evaluation of a self-reported drug overdose. He reports he was using recreationally and does not wish to harm himself. He self administered Narcan. He is awake, and oriented. I have recommended an EKG as the patient administered Narcan and was using substances. The patient reports that he does not need that and does not wish to have any further interventions. He was offered evaluation by the recovery team for but this will detox and he declines this as well. The patient reports that he wishes to leave against medical advice Differential Diagnosis Differential Diagnoses: The differential diagnosis associated with the presentation includes Substance abuse Overdose Opiate abuse Discharge Plan Discharge Clinical Impression: Substance abuse Patient Disposition: Left Against Medical Advice Instructions: Polysubstance Use Disorder (ED) Additional Instructions: You declined an EKG which is typically performed after Narcan was administered. You are opting to leave against medical advice. We typically would observe you for approximately 2 hours You also declined due to speak with anybody about substance abuse Return for new or worsening symptoms Prescriptions: No Action sulfamethoxazole-trimethoprim [Bactrim DS] 800-160 mg tablet 1 tab PO BID Qty: 20 0RF miconazole nitrate [Lotrimin AF Jock Itch Powder] 2 % aerosol powder 1 spray topical BID Qty: 133 0RF cephalexin 500 mg capsule 500 mg PO QID 10 Days Qty: 40 0RF doxycycline hyclate 100 mg tablet 100 mg PO BID Qty: 20 0RF doxycycline monohydrate 100 mg capsule 100 mg PO BID Qty: 14 0RF Stand Alone Forms: Against Medical Advice Interventions: ED Discharge Assessment Last Done: 02/28/25 18:47 Print Language: Estonian
[2025-02-28 18:47] VITALS: BP 132/68; PULSE 99; RESP 16; TEMP 36.8; O2SAT 95
[2025-02-28] MEDS: Naloxone HCl Nasal 4 MG SPRAY NOSTRILALT (18:47)
== END 2025-02-28 19:20 | disposition left against medical advice (07) ==
LOC: HO.ED 19:13
PROVIDERS: Emergency Provider Student in an Organized Health Care Education/Training Program
DX: T40.1X1A Poisoning by heroin, accidental (unintentional), initial encounter (principal); F14.90 Cocaine use, unspecified, uncomplicated; F17.210 Nicotine dependence, cigarettes, uncomplicated
CPT/HCPCS: 99284

== ENCOUNTER 2025-03-07 12:40 | Emergency (ER) | payer SELFPAY ==
[2025-03-07 12:55] VITALS: BP 150/90; PULSE 106; O2SAT 96
[2025-03-07 13:07] VITALS: BP 133/86; PULSE 105; RESP 16; O2SAT 94; BMI 34.4
--- NOTE | 2025-03-07 13:20 | MHC.EDTECH ---
PT changed over with security in the family room. 5 belonging bags in banner. Knife secured in secrty.
--- NOTE | 2025-03-07 13:30 | ED.SKABFB ---
HPI - Skin/Abscess/Foreign Bdy General Chief complaint: Skin/Abscess/Foreign Body Stated complaint: CYST INNER L THIGH,USED DOPE/CRACK TODAY Time Seen by Provider: 03/07/25 13:08 Source: patient and EMS Mode of arrival: EMS Limitations: no limitations History of Present Illness ED Provider: HPI narrative: 35-year-old male with a history of polysubstance use disorder, including IV drug use, he has left inner thigh pimple that he has developed approximately a week ago and he states he has been squeezing in the area now he has redness over his thigh, no fevers or chills reported, no SI or HI, he is not interested in detox, he is under the influence of some opiate at this time but fairly mild, able to carry on conversation, patient is not nodding off Related Data Previous Rx's ?Medication ?Instructions ?Recorded sulfamethoxazole 800 1 tab PO BID #20 tabs 11/18/21 mg-trimethoprim 160 mg tablet (Bactrim DS) cephalexin 500 mg capsule 500 mg PO QID 10 days #40 caps 12/07/22 doxycycline hyclate 100 mg tablet 100 mg PO BID #20 tabs 12/07/22 miconazole nitrate 2 % topical 1 spray topical BID #133 grams 12/07/22 spray powder (Lotrimin AF Jock Itch Powder) doxycycline monohydrate 100 mg 100 mg PO BID #14 caps 02/19/25 capsule cephalexin 500 mg capsule 500 mg PO Q6H 7 days #28 caps 03/07/25 doxycycline hyclate 100 mg capsule 100 mg PO BID 7 days #14 caps 03/07/25 Allergies Allergy/AdvReac Type Severity Reaction Status Date / Time No Known Allergies Allergy Verified 03/07/25 13:09 Review of Systems Constitutional: Constitutional: Reports as per [facility] Past Medical History Medical History Polysubstance abuse Social History Social History Alcohol intake: current Alcohol intake frequency: 3 or more drinks per day Patient Tobacco Use Status: Current everyday Tobacco user Substance Use Type: Crack/Cocaine and Opiates Physical Exam Exam: Exam: ?General: ??Looks slightly older than stated age ?No scleral icterus, no head injury Neck: Supple, no LAD ?CV: RRR, no obvious murmurs appreciated ?Resp: ?No wheezing rales rhonchi no stridor moving air well Abd: ?Bowel sounds are present, no tenderness no rebound no rigidity MSK: FROM, strength 5/5 all extremities : Unremarkable penis and testicles, there is subcutaneous penile rock inserted in fdc many years ago Skin: See picture ?Neuro: ?Alert and oriented x3, moving upper and lower extremities symmetrically, no obvious facial asymmetry noted, cranial nerves 2-12 intact Vital Signs: Vital Signs: Last Vital Signs Pulse 105 H 03/07/25 13:07 Resp 16 03/07/25 13:07 BP 133/86 03/07/25 13:07 Pulse Ox 94 03/07/25 13:07 O2 Del Method Room Air 03/07/25 13:07 BMI result Body Mass Index 34.4 Medical Decision Making Medical Decision Making MDM Narrative: 1:46 PM 03/07/2025 (Dr. Juan Pablo Mcnulty): Overall well-appearing site of cellulitis, he does pick at it quite a bit in the setting of methamphetamine crack cocaine use and substance use this is not in the injection site infection, there is no fluctuance nothing to perform incision and drainage on, I spoke quite a bit with him regarding addiction and I did want him to detox but he is not interested at this time, clinically he has under the influence of something opiate like but he is not lethargic, fully conversational, and does not require naloxone, did not feel further imaging such as ultrasound or x-rays or CT of the extremities indicated, or blood work at this time, nonfebrile. I spoke to him regarding skin care and we will cover him on antibiotics. The area was demarcated and dated. Differential Diagnosis Differential Diagnoses: The differential diagnosis associated with the presentation includes (Abscess, cellulitis, deep space infection, side of IV drug use injection, pyomyositis) Discharge Plan Discharge Clinical Impression: Cellulitis Qualifiers: Site of cellulitis: extremity Patient Disposition: Home, Self-Care Additional Instructions: Keep the area clean and dry, washing hands and with soap and water, wash your lower extremities with soap and water, start taking antibiotics, did not pick at the area, there was nothing to drain there, there was no pus, the area was marked with a pen, if in the next 24 hours there is significant spreading of redness way past the line over the mid thigh down into your knee and up into your testicles and groin come back to the ER for re-evaluation otherwise allow antibiotics next 48-72 hours to start work in the redness 1 improve right away, make sure to not pick at the area as I discussed with the you, I also offered detox to you which you declined Skin picking is a result of using crack cocaine or amphetamines First doses of antibiotic given in the ER, next doses in the evening Prescriptions: New cephalexin 500 mg capsule 500 mg PO Q6H 7 Days Qty: 28 0RF doxycycline hyclate 100 mg capsule 100 mg PO BID 7 Days Qty: 14 0RF No Action sulfamethoxazole-trimethoprim [Bactrim DS] 800-160 mg tablet 1 tab PO BID Qty: 20 0RF miconazole nitrate [Lotrimin AF Jock Itch Powder] 2 % aerosol powder 1 spray topical BID Qty: 133 0RF cephalexin 500 mg capsule 500 mg PO QID 10 Days Qty: 40 0RF doxycycline hyclate 100 mg tablet 100 mg PO BID Qty: 20 0RF doxycycline monohydrate 100 mg capsule 100 mg PO BID Qty: 14 0RF Print Language: [place] Irish
== END 2025-03-07 14:13 | disposition home or self-care (01) ==
PROVIDERS: Emergency Provider Emergency Medicine
DX: L72.9 Follicular cyst of the skin and subcutaneous tissue, unspecified (principal)
CPT/HCPCS: 99281

== ENCOUNTER 2025-03-14 06:46 | Emergency (ER) | payer SELFPAY ==
--- NOTE | 2025-03-14 06:50 | ECG_ITS ---
Test Reason : cp Blood Pressure : */* mmHG Vent. Rate : 98 BPM Atrial Rate : 98 BPM P-R Int : 144 ms QRS Dur : 94 ms QT Int : 372 ms P-R-T Axes : 38 28 20 degrees QTcB Int : 474 ms Normal sinus rhythm Normal ECG When compared with ECG of 19-Feb-2025 05:35, No significant change was found Referred By: Generic ED Physician Electronically Signed By: HAL SLOAN MD
[2025-03-14 07:11] VITALS: BP 139/76; PULSE 100; RESP 18; TEMP 37; O2SAT 95; BMI 31.3
== END 2025-03-14 09:46 | disposition left against medical advice (07) ==
PROVIDERS: Emergency Provider Emergency Medicine
DX: R07.9 Chest pain, unspecified (principal); F19.10 Other psychoactive substance abuse, uncomplicated; Z59.00 Homelessness unspecified
CPT/HCPCS: 93005; 99283

== ENCOUNTER → 2025-03-14 06:50 | Outpatient (BNV) | payer SELFPAY | PROVIDERS: Visit Provider Internal Medicine Cardiovascular Disease | DX: R07.9 Chest pain, unspecified (principal) | CPT/HCPCS: 93010 ==